=== PATIENT | female | born 1990 | race Caucasian/White ===

== ENCOUNTER 2018-05-30 09:17 | Emergency (ER) | payer SELFPAY ==
[2018-05-30 10:08] LABS: Absolute Lymphocytes (CBC) 1.1 K/uL (0.7-4.9); Absolute Monocytes 0.6 K/uL (0.1-1.3); Absolute Neutrophil 12.5 K/uL (1.8-8.0); Basophils % 0.3 % (0-1.3); Eosinophils % 0.6 % (0-4.4); Hematocrit 43.2 % (36.0-45.0); Lymphocytes % 7.5 % (15.3-44.8); MCH 30.9 pg (27.0-35.0); MCV 91.8 fL (80-100); MPV 8.8 fL (7.6-11.3); Monocytes % 4.1 % (3.3-12.3)
[2018-05-30 10:11] LABS: Calcium Oxalate Crystals- Ur MANY (NONE SEEN); Urine Bacteria >50 /HPF (<20); Urine Culture Reflex Order REFLEXED; Urine Mucus 1+ /HPF (NONE SEEN); Urine RBC 20-50 /HPF (NONE SEEN)
[2018-05-30 10:12] LABS: Potassium 4.1 mmol/L (3.5-5.1)
[2018-05-30 10:17] LABS: Urine Blood 3+ (NEG); Urine Glucose NEGATIVE (NEG); Urine Protein TRACE (NEG); Urine pH 5.5 (5.0-7.0)
[2018-05-30 10:40] LABS: Urine White Blood Cell Casts OK
[2018-05-30 10:41] LABS: Blood Morphology Comment NOT SEEN (NOT SEEN); Platelet Estimate ADEQ
--- NOTE | 2018-05-30 10:57 | RAD REPORT ---
EXAM DESCRIPTION: US - Pelvis Complete - 05/30/2018 10:44 am CLINICAL HISTORY: Left lower quadrant pelvic pain COMPARISON: None. TECHNIQUE: Transabdominal pelvic sonography was performed. Doppler evaluation of the ovaries perform ed. FINDINGS: Uterus measures 7.3 x 2.8 x 3.5 cm. Endometrial stripe is 4 mm. Endometrium-myometrium int erface is preserved. No endometrial or myometrial focal abnormality. No abnormal free fluid in the cu l-de-sac. Both ovaries are identified. Doppler evaluation shows normal waveform patterns within the o varian stroma. No dominant solid or cystic ovarian or adnexal finding. No fallopian tube dilatation. IMPRESSION: Negative transabdominal pelvic ultrasound.
--- NOTE | 2018-05-30 11:13 | RAD REPORT ---
EXAM DESCRIPTION: CT - Stone Protocol - 05/30/2018 10:52 am CLINICAL HISTORY: Left-sided abdominal pain, left-sided pelvic pain COMPARISON: Pelvic ultrasound same date TECHNIQUE: CT imaging of the abdomen was performed without oral or IV contrast. All CT scans are performed using dose optimization technique as appropriate and may include automated exposure control or mA/KV adjustment according to patient size. FINDINGS: No suspicious findings in the lung bases. The liver, spleen, and pancreas show no suspicious findings for a non IV contrast study. Gallbladder and biliary tree are also without suspicious finding. Gallstones can be occult on CT imaging. No hydronephrosis or suspicious mass in either kidney. Isodense masses and pyelonephritis are not exc luded. Patient has bilateral 2-4 mm caliceal calculi. No ureteral calculus suspected. There is a phle bolith in the lower left pelvis. No bladder calculus. No bladder wall thickening or mass. Uterus and ovaries show no suspicious findings. No dilated bowel loops or bowel wall thickening. No free air, free fluid or inflammatory stranding. N o hernia, mass or bulky lymphadenopathy. Appendix is not clearly defined. No direct or indirect evide nce for appendicitis. No suspicious bony findings. Overall exam sensitivity is decreased when no contrast is administered. IMPRESSION: Non-contrast CT abdomen study shows no acute finding. Patient has bilateral nonobstructing renal calculi. No finding to suspect an obstructing calculus. Full assessment is limited in the absence of oral and IV contrast.
--- NOTE | 2018-05-30 11:25 | EDPHYS ---
Physician Documentation [facility] Name: Daisha Baldwin Age: 28 yrs Sex: Female : 1990 Arrival Date: 05/30/2018 Time: 09:21 Bed 13 Private MD: Out, [facility] ED Physician Gurvinder Niño HPI: 05/30 10:41 This 28 yrs old Female presents to ER via Ambulatory with complaints of rn Abdominal Pain. 10:41 The patient presents with abdominal pain in the lower abdomen, in the left lower rn quadrant. Onset: The symptoms/episode began/occurred last night. The symptoms do not radiate. Associated signs and symptoms: Pertinent positives: dysuria, vomiting, Pertinent negatives: fever, hematuria. The symptoms are described as achy, sharp. Modifying factors: The symptoms are alleviated by nothing, the symptoms are aggravated by nothing. Severity of pain: At its worst the pain was moderate in the emergency department the pain has improved. The patient has not experienced similar symptoms in the past. The patient has not recently seen a physician. 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 - Social history:: Smoking status: Patient/guardian denies using tobacco. - Ebola Screening: : No symptoms or risks identified at this time. - Family history:: not pertinent. - Hospitalizations: : No recent hospitalization is reported. ROS: 10:41 Constitutional: Negative for fever, chills, and weight loss, Eyes: Negative for injury, rn pain, redness, and discharge, Neck: Negative for injury, pain, and swelling, Cardiovascular: Negative for chest pain, palpitations, and edema, Respiratory: Negative for shortness of breath, cough, wheezing, and pleuritic chest pain, Abdomen/GI: + LLQ abd pain, + vomiting, no diarrhea MS/Extremity: Negative for injury and deformity, Skin: Negative for injury, rash, and discoloration, Neuro: Negative for headache, weakness, numbness, tingling, and seizure. Exam: 10:41 Constitutional: This is a well developed, well nourished patient who is awake, alert, rn and in no acute distress. Head/Face: Normocephalic, atraumatic. Abdomen/GI: soft, + LLQ tenderness, no rebound MS/ Extremity: Pulses equal, no cyanosis. Neurovascular intact. Full, normal range of motion. Equal circumference. Neuro: Awake and alert, GCS 15, oriented to person, place, time, and situation. Motor strength 5/5 in all extremities. Sensory grossly intact. Vital Signs: 09:26 Weight 63.5 kg; Height 5 ft. 3 in. (160.02 cm); Pain 5/10; sv 09:30 BP 117 / 69; Pulse 80; Resp 18; Temp 97.7; Pulse Ox 100% ; sv 10:30 BP 109 / 68; Pulse 76; Resp 18; Pulse Ox 100% on R/A; ph 11:41 BP 115 / 70; Pulse 74; Resp 18; Temp 98.0; Pulse Ox 99% on R/A; ph 09:26 Body Mass Index 24.80 (63.50 kg, 160.02 cm) sv MDM: 09:34 Patient medically screened. rn 11:23 Differential diagnosis: diverticulitis, non-specific abd pain, Ovarian Torsion, rn Ureterolithiasis, urinary tract infection. Data reviewed: vital signs, nurses notes, lab test result(s), radiologic studies, CT scan, ultrasound, and as a result, I will discharge patient. Counseling: I had a detailed discussion with the patient and/or guardian regarding: the historical points, exam findings, and any diagnostic results supporting the discharge/admit diagnosis, lab results, radiology results, the need for outpatient follow up, to return to the emergency department if symptoms worsen or persist or if there are any questions or concerns that arise at home. Response to treatment: the patient's symptoms have markedly improved after treatment, and as a result, I will discharge patient. Special discussion: Based on the patient's Hx, exam, and Dx evaluation, there is no indication for emergent surgery or inpatient Tx. It is understood by the patient/guardian that if the Sx's persist or worsen they need to return immediately for re-evaluation. I discussed with the patient/guardian in detail that at this point there is no indication for admission to the hospital. It is understood, however, that if the symptoms persist or worsen the patient needs to return immediately for re-evaluation. ED course: Pt improved, pain almost resolved, most likely UTI and passed kidney stone given blood in urine, dysuria, and multiple stones in kidneys. . 05/30 09:41 Order name: Basic Metabolic Panel; Complete Time: 10:20 05/30 09:41 Order name: CBC with Diff; Complete Time: 11:14 rn 05/30 09:41 Order name: Urine Microscopic Only; Complete Time: 10:13 rn 05/30 09:56 Order name: Urine Dipstick--Ancillary (enter results); Complete Time: 10:20 em 05/30 09:56 Order name: Urine --Ancillary (enter results); Complete Time: 10:20 [facility] 05/30 10:10 Order name: CBC Smear Scan; Complete Time: 11:14 EDNJ 05/30 09:41 Order name: Urine Test (obtain specimen); Complete Time: 09:53 rn 05/30 09:41 Order name: IV Saline Lock; Complete Time: 09:53 05/30 09:41 Order name: Labs collected and sent; Complete Time: 09:53 05/30 09:41 Order name: Urine Dipstick-Ancillary (obtain specimen); Complete Time: 09:53 rn 05/30 09:41 Order name: US Pelvis Complete; Complete Time: 11:14 05/30 10:12 Order name: Urine Culture [facility] 05/30 10:22 Order name: CT Stone Protocol; Complete Time: 11:14 rn Administered Medications: No medications were administered Disposition: 05/30/18 11:24 Discharged to Home. Impression: Nephrolithiasis, Urinary tract infection, site not specified. - Condition is Stable. - Discharge Instructions: Kidney Stones, Urinary Tract Infection. - Prescriptions for Macrobid 100 mg Oral Capsule - take 1 capsule by ORAL route every 12 hours for 10 days; 20 capsule. - Medication Reconciliation Form, Thank You Letter, Antibiotic Education, Prescription Opioid Use, Work release form form. - Follow up: Private Physician; When: As needed; Reason: Recheck today's complaints, Re-evaluation by your physician. - Problem is new. - Symptoms have improved. Signatures: Dispatcher MedHoAl[facility]quer[facility] Indian Health CenterLois Mariscal, Gurvinder Cazares RN, MD MD rn GrantHilary RN RN ph Corrections: (The following items were deleted from the chart) 11:42 11:24 05/30/2018 11:24 Discharged to Home. Impression: Nephrolithiasis; Urinary tract ph infection, site not specified. Condition is Stable. Forms are Medication Reconciliation Form, Thank You Letter, Antibiotic Education, Prescription Opioid Use. Follow up: Private Physician; When: As needed; Reason: Recheck today's complaints, Re-evaluation by your physician. Problem is new. Symptoms have improved. rn
--- NOTE | 2018-05-30 11:25 | ER ---
Nurse's Notes [facility] Name: Daisha Baldwin Age: 28 yrs Sex: Female : 1990 Arrival Date: 05/30/2018 Time: 09:21 Bed 13 Private MD: Out, [facility] Diagnosis: Nephrolithiasis;Urinary tract infection, site not specified Presentation: 05/30 09:24 Presenting complaint: Patient states: LLQ since last night. c/o vomiting. Transition of sv care: patient was not received from another setting of care. Onset of symptoms was May 29, 2018. Care prior to arrival: None. 09:24 Method Of Arrival: Ambulatory sv 09:24 Acuity: FILI 3 sv 09:43 Risk Assessment: Do you want to hurt yourself or someone else? Patient reports no ph desire to harm self or others. Initial Sepsis Screen: Does the patient meet any 2 criteria? No. Patient's initial sepsis screen is negative. Does the patient have a suspected source of infection? No. Patient's initial sepsis screen is negative. 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 - Social history:: Smoking status: Patient/guardian denies using tobacco. - Ebola Screening: : No symptoms or risks identified at this time. - Family history:: not pertinent. - Hospitalizations: : No recent hospitalization is reported. Screenin:42 Abuse screen: Denies threats or abuse. Denies injuries from another. Nutritional ph screening: No deficits noted. Tuberculosis screening: No symptoms or risk factors identified. Fall Risk None identified. Assessment: 09:43 General: Appears in no apparent distress. uncomfortable, slender, well groomed, ph Behavior is calm, cooperative, appropriate for age, Denies fever, feeling ill. Pain: Complains of pain in left lower quadrant Pain radiates to left upper quadrant Quality of pain is described as sharp, stabbing, Pain began 1 day ago. Neuro: Level of Consciousness is awake, alert, obeys commands, Oriented to person, place, time, situation. Cardiovascular: Capillary refill < 3 seconds Patient's skin is warm and dry. Respiratory: Airway is patent Respiratory effort is even, unlabored, Respiratory pattern is regular, symmetrical. GI: Abdomen is flat, non-distended, Bowel sounds present X 4 quads. Abd is soft X 4 quads Abdomen is tender to palpation in left lower quadrant Reports lower abdominal pain, nausea, vomiting, Patient currently denies diarrhea. : Reports pain in left lower quadrant(s) Denies burning with urination, discharge, vaginal bleeding. Derm: Skin is intact, is healthy with good turgor, Skin is pink, warm \T\ dry. Musculoskeletal: Circulation, motion, and sensation intact. Range of motion: intact in all extremities. 10:30 Reassessment: Patient appears in no apparent distress at this time. Patient and/or ph family updated on plan of care and expected duration. Pain level reassessed. Patient is alert, oriented x 3, equal unlabored respirations, skin warm/dry/pink. Pt resting quietly, awaiting US and lab results. 11:23 Reassessment: Patient appears in no apparent distress at this time. Patient and/or ph family updated on plan of care and expected duration. Pain level reassessed. Patient is alert, oriented x 3, equal unlabored respirations, skin warm/dry/pink. ERP at bedside to speak w/ pt about results, awaiting d/c. Vital Signs: 09:26 Weight 63.5 kg; Height 5 ft. 3 in. (160.02 cm); Pain 5/10; sv 09:30 BP 117 / 69; Pulse 80; Resp 18; Temp 97.7; Pulse Ox 100% ; sv 10:30 BP 109 / 68; Pulse 76; Resp 18; Pulse Ox 100% on R/A; ph 11:41 BP 115 / 70; Pulse 74; Resp 18; Temp 98.0; Pulse Ox 99% on R/A; ph 09:26 Body Mass Index 24.80 (63.50 kg, 160.02 cm) sv ED Course: 09:21 Patient arrived in ED. sb2 09:21 Out, [facility] is Private Physician. sb2 09:25 Triage completed. sv 09:26 Arm band placed on left wrist. sv 09:27 Hilary Grant RN is Primary Nurse. ph 09:34 Gurvinder Niño MD is Attending Physician. rn 09:43 Patient has correct armband on for positive identification. Placed in gown. Bed in low ph position. Call light in reach. Side rails up X 1. Pulse ox on. NIBP on. Warm blanket given. 09:48 Note: us delayed. pt drinking to fill bladder for pelvic us. pt refuse vag probe. lc3 09:56 Initial lab(s) drawn, by me, sent to lab. Urine collected: clean catch specimen, clear, jd2 Amount Voided: 200mL. Inserted saline lock: 20 gauge in right antecubital area, using aseptic technique. Blood collected. 10:22 Patient taken to ultrasound. via wheelchair. lc3 10:44 Ultrasound completed. Patient tolerated well. Patient moved back from ultrasound. lc3 10:44 US Pelvis Complete In Process Unspecified. EDMS 10:46 CT completed. Patient tolerated procedure well. Patient moved to CT via wheelchair. Patient moved back from CT. 10:50 CT Stone Protocol In Process Unspecified. EDMS 11:24 No provider procedures requiring assistance completed. IV discontinued, intact, ph bleeding controlled, No redness/swelling at site. Pressure dressing applied. Administered Medications: No medications were administered Outcome: 11:24 Discharge ordered by MD. rn 11:42 Discharged to home ambulatory, with significant other. ph 11:42 Condition: good 11:42 Discharge instructions given to patient, Instructed on discharge instructions, follow up and referral plans. medication usage, Demonstrated understanding of instructions, follow-up care, medications, Prescriptions given X 1. 11:42 Patient left the ED. ph Addendum: 06/02/2018 17:00 Addendum: Culture Results: Positive urine culture. Bacteria is resistant to, has i w intermediate sensitivity, or is not tested against prescribed antibiotics. Report given to HECTOR for further evaluation and then to director validation for follow up with patient. Phone call Attempt #1 pt having chills, sweating, headache Prescription called-in to pharmacy of choice. called in Bactrim DS 1 tab PO BID for 7 days, called in to [facility]. Signatures: Dispatcher [employer] Lois Horta RN RN sv Jones, Susan sj Williams, Irene, RN RN iw Nieto, Roman, MD MD rn Hall, Patricia, RN RN ph Armando, Dangelo Alvarado jd2 Anila Holland sb2
== END 2018-05-30 11:42 | disposition home or self-care (01) ==
LOC: ER 09:17
DX: N20.0 Calculus of kidney (principal); N39.0 Urinary tract infection, site not specified
CPT/HCPCS: 36415; 74176; 76377; 76856; 80048; 81003; 81015; 81025; 85025; 87077; 87086; 87088; 87186; 99284